=== PATIENT | female | born 1940 | race Caucasian/White ===

== ENCOUNTER 2024-04-23 10:17 | Emergency (ER) | payer MEDICARE, MEDICAID ==
[~2024-04-23] VITALS: Ht 167.6 cm; Wt 74.8 kg
[~2024-04-23 10:17] MED LIST: APIX5TAB3 PO; ATOR20TA66 PO; DONE10TA44 PO; LEVO25TA7 PO; PREG100C56 PO
[2024-04-23 10:21] VITALS: TEMP 97.9
[2024-04-23 10:43] LABS: BASOPHILS % (AUTO) 0.6 % (0-1); EOSINOPHILS # (AUTO) 0.1 X10'3 (0-0.9); HEMOGLOBIN 12.9 g/dl (12.0-16.0); LYMPHOCYTES # (AUTO) 1.6 X10'3 (1.1-4.8); MEAN CORPUSCULAR HGB CONC 33.1 g/dL (33.0-36.5); MONOCYTES # (AUTO) 0.4 X10'3 (0-0.9)
[2024-04-23 10:45] LABS: EOSINOPHILS % (AUTO) 1.2 % (0-6); HEMATOCRIT 38.9 % (35.0-45.0); LYMPHOCYTES % (AUTO) 32.3 % (21-51); MEAN CORPUSCULAR HEMOGLOBIN 30.6 PG (27.0-31.0); MEAN CORPUSCULAR VOLUME 92.5 FL (78-98); MEAN PLATELET VOLUME 9.9 FL (7.4-10.4); MONOCYTES % (AUTO) 8.1 % (2-12); NEUTROPHILS # (AUTO) 2.9 X10'3 (1.8-7.7); NEUTROPHILS % (AUTO) 57.8 % (42-75); PLATELET COUNT 227 X10'3 (140-440); RED BLOOD COUNT 4.21 X10'6 (4.20-5.60); RED CELL DISTRIBUTION WIDTH 14.1 % (11.5-14.5)
[2024-04-23 11:03] LABS: ALBUMIN 3.2 G/DL (3.4-5.0); ANION GAP 10 (8-16); BLOOD UREA NITROGEN 21 MG/DL (7-18); BUN/CREATININE RATIO 20.8 (10.0-20.0); CALCIUM 8.9 MG/DL (8.5-10.1); CHLORIDE 109 MMOL/L (99-107); CREATININE 1.01 MG/DL (0.40-0.90); GLUCOSE 97 MG/DL (70-104); POTASSIUM 3.8 MMOL/L (3.5-5.1); PRO BRAIN NATRIURETIC PEPTIDE 637 PG/ML (0-450); SODIUM 146 MMOL/L (135-145); TOTAL CARBON DIOXIDE 27.4 MMOL/L (24-32); eCRCL 39 ML/MIN; eGFR 52 ML/MIN
[2024-04-23] MEDS: normal saline 1000ML IV soln IVB ONE (11:54)
[2024-04-23 16:34] VITALS: BP 148/54; PULSE 50; RESP 16; O2SAT 96
== END 2024-04-23 16:49 | disposition home or self-care (01) ==
LOC: ER 10:18
DX: R41.82 Altered mental status, unspecified (principal); M19.90 Unspecified osteoarthritis, unspecified site; Z79.899 Other long term (current) drug therapy
CPT/HCPCS: 36415; 71045; 80048; 83880; 84484; 85025; 93005; 99285; J7030; J7040